=== PATIENT | male | born 1965 | race Hispanic/Latino ===

== ENCOUNTER 2025-10-08 19:38 | Emergency (ER) | payer BC, OTHER ==
[~2025-10-08] VITALS: Ht 172.7 cm; Wt 90.7 kg
--- NOTE | 2025-10-08 20:12 | EKG ---
[facility] Test Date: 2025-10-08 Test Time: 20:09:50 Pat Name: VIJAY FREY Department: ED Room: Gender: Hat [employer] Inspector: [facility] : [id number] Requested By: ANA HUNG Order Number: [id number] Reading MD: Nazario Delacruz Measurements Intervals [place] Rate: 94 P: 54 [place]: 238 QRS: 69 QRSD: 103 T: 34 QT: 377 QTc: 471 Interpretive Statements Sinus rhythm Prolonged [place] interval No previous ECG available for comparison Electronically Signed On 10-10-2025 10:10:49 CLINICAL PHARMACY TECHNICIAN by Nazario Delacruz Please click the below link to view image of tracing.
[2025-10-08] MEDS: THIAMINE HCL 100 MG/ML 2ML VIAL IVP ONE (20:20)
[2025-10-08] MEDS: 0.9%NACL 1000ML 1,000 ML IV ONE (20:20)
[2025-10-08 20:30] LABS: IMMATURE GRANULOCYTE ABSOLUTE 0.03 K/uL (0-1); NUCLEATED RED BLOOD CELLS 0.0 % (0.0-0.19); PLATELET COUNT (AUTO) 203 K/uL (130-400); RED BLOOD CELL COUNT(AUTO) 3.93 MIL/uL (4.50-6.20); RED CELL DISTRIBUTION WIDTH 12.5 % (11.0-15.5); WHITE BLOOD COUNT (AUTO) 10.2 K/uL (4.8-10.8)
[2025-10-08 20:38] LABS: CREATININE 0.7 mg/dL (0.5-1.3); GLOMERULAR FILTR. RATE CALC 104.0 mL/min (>90); GLUCOSE,RANDOM 127.0 mg/dL (70-105); SODIUM SERUM 133.0 mmol/L (136-145); UREA NITROGEN, BLOOD 7.0 mg/dL (7-18)
[2025-10-08 20:46] LABS: ASPARTATE AMINOTRANSFERASE 44.0 U/L (10-37); CREATINE KINASE, TOTAL 195.0 U/L (21-232); TOTAL PROTEIN, SERUM 8.3 g/dL (6.0-8.3)
--- NOTE | 2025-10-08 21:16 | HMCIMG ---
EXAM: CR Face, 2 View. CLINICAL HISTORY: FALL COMPARISON: None provided. FINDINGS: BONES: No displaced facial fracture detected. SINUSES: No obvious air-fluid level or paranasal sinus opacification. ORBITS: No orbital emphysema detected. SOFT TISSUES: Unremarkable. IMPRESSION: Exam limited. 1. No facial fracture detected. 2. Plain film sensitivity for facial fractures is limited. 3. Facial bone CT may be useful if further imaging evaluation is indicated. /[place]
--- NOTE | 2025-10-08 21:18 | HMCIMG ---
EXAM: CT Head Without IV contrast. CLINICAL HISTORY: FALL TECHNIQUE: Axial computed tomography images of the head/brain without intravenous contrast. COMPARISON: None provided. FINDINGS: BRAIN: No evidence of acute hemorrhage. No mass lesion. No CT evidence for acute territorial infarct. No midline shift or extra-axial collections. VENTRICLES: No hydrocephalus. ORBITS: The orbits are unremarkable. SINUSES AND MASTOIDS: Opacification of the paranasal sinuses especially ethmoid air cells, right maxillary antrum BONES: No fracture. SOFT TISSUES: Unremarkable. IMPRESSION: No acute intracranial abnormality. CT facial bones recommended. /[place]
--- NOTE | 2025-10-08 21:50 | ERN ---
ED Note History of Present Illness Stated Complaint: FALL, ETOH Chief Complaint: Mechanical Fall Time Seen by MD: 19:42 Dictation: 60-YEAR-OLD MALE PRESENTS TO ER COMPLAINTS OF NOSEBLEED, AFTER A FALL. PATIENT STATES HE WAS DRINKING ALCOHOL AND THEN GOT DIZZY AND FELL FORWARD HIT HIS FACE. DENIES LOC. PATIENT STATES HE STARTED TO WASH HIS FACE THE BLOOD STARTED GOING TO THE BACK OF HIS THROAT AND THEN HE STARTED THROWING UP THE BLOOD THAT WAS COMING FROM HIS NOSEBLEED AT BEDSIDE AGREES THAT THAT IS WHAT HAPPENED SHE WITNESSED IT. Allergies: Coded Allergies: No Allergy Information Available (Unverified Allergy, Unknown, 02/27/16) Past Medical History Past Medical History: Alcoholism, Diabetes-Type II, Hypertension Surgical History: None Review of System Dictation CONSTITUTIONAL: NEGATIVE FOR FEVER,CHILLS, AND WEIGHT LOSS EYES: NEGATIVE FOR INJURY, PAIN,REDNESS, AND DISCHARGE ENT: FOR NASAL INJURY. POSITIVE NOSEBLEED CARDIOVASCULAR: NEGATIVE FOR CHEST PAIN, PALPITATIONS, AND EDEMA RESPIRATORY: NEGATIVE FOR SHORTNESS OF BREATH, COUGH, WHEEZING, AND PLEURITIC CHEST PAIN ABDOMEN/GI: NEGATIVE FOR ABDOMINAL PAIN, NAUSEA, VOMITING AND DIARRHEA. BACK: NEGATIVE FOR PAIN OR INJURY : NEGATIVE FOR INJURY, BLEEDING AND DISCHARGE MS/EXTREMITY: NEGATIVE FOR INJURY AND DEFORMITY SKIN: NEGATIVE FOR RASH, AND DISCOLORATION NEURO: POSITIVE FOR HEADACHE, POSITIVE CONTUSION TO HEAD PSYCH: NEGATIVE FOR SUICIDE IDEATION, HOMICIDAL IDEATION, AND HALLUCINATIONS ALLERGY/IMMUNOLOGY: NEGATIVE FOR HIVES, RASH, AND ALLERGIES ALL SYSTEMS NEGATIVE, EXCEPT NOTED ABOVE. 13 POINT REVIEW OF SYSTEMS ASSESSED AND ALL NEGATIVE EXCEPT FOR ABOVE. Initial Vital Sign VS Vital Signs Date Time Temp Pulse Resp B/P (MAP) Pulse Ox O2 Delivery O2 Flow Rate FiO2 10/08/25 19:39 98.1 90 20 125/82 99 Room Air 0 Physical Exam Dictation GENERAL: AWAKE, ALERT, NAD. PATIENT IS INTOXICATED HEAD/FACE: FACIAL ABRASIONS TO NOSE BRIDGE EYES: PERRL, EOMI, VISION AT BASELINE ENT: ORAL CAVITY CLEAR, TMS CLEAR, NO SIGNS OF INFECTION NECK: TRACHEA MIDLINE, SUPPLE, NO NUCHAL RIGIDITY CARDIOVASCULAR: RRR, NORMAL NO JVD RESPIRATORY: CTAB, NO RESPIRATORY DISTRESS, NO RALES OR WHEEZES ABDOMEN: SOFT, NON-TENDER, NON-DISTENDED, NORMAL BOWEL SOUNDS, NO GUARDING OR REBOUND. SKIN: WARM, DRY, NORMAL TURGOR, NO RASH MS/EXTREMITY: PULSES EQUAL, NO CYANOSIS, NEUROVASCULAR INTACT, FROM NEURO: COAX4, GCS 15, STRENGTH 5/5, CN 2-12 INTACT, NORMAL CEREBELLAR EXAM, NORMAL GAIT, PSYCH: NORMAL BEHAVIOR, MOOD, AND AFFECT NORMAL Results (Laboratory/Radiology) Laboratory/Radiology Laboratory Tests Test 10/08/25 20:23 White Blood Count 10.2 K/uL (4.8-10.8) Red Blood Count 3.93 MIL/uL (4.50-6.20) L Hemoglobin 12.8 g/dL (14.0-18.0) L Hematocrit 37.2 % (42-54) L Mean Corpuscular Volume 94.7 fL (79-99) Mean Corpuscular Hemoglobin 32.6 pg (27.0-33.0) Mean Corpuscular Hemoglobin Concent 34.4 g/dL (32.0-36.0) Red Cell Distribution Width 12.5 % (11.0-15.5) Platelet Count 203 K/uL (130-400) Mean Platelet Volume 9.4 fL (7.5-10.5) Immature Granulocyte % (Auto) 0.3 % (0-1) Neutrophils (%) (Auto) 44.2 % (40.0-77.0) Lymphocytes (%) (Auto) 33.2 % (21.0-51.0) Monocytes (%) (Auto) 5.9 % (3.0-13.0) Eosinophils (%) (Auto) 15.7 % (0.0-8.0) H Basophils (%) (Auto) 0.7 % (0.0-5.0) Neutrophils # (Auto) 4.5 K/uL (1.8-7.7) Lymphocytes # (Auto) 3.4 K/uL (1.0-4.8) Monocytes # (Auto) 0.6 K/uL (0.1-1.0) Eosinophils # (Auto) 1.61 K/uL (0.00-0.70) H Basophils # (Auto) 0.07 K/uL (0.00-0.20) Absolute Immature Granulocyte (auto 0.03 K/uL (0-1) Nucleated Red Blood Cells 0.0 % (0.0-0.19) White Cell Morphology Comment See comments Sodium Level 133 mmol/L (136-145) L Potassium Level 4.5 mmol/L (3.5-5.1) Chloride Level 99 mmol/L (101-111) L Carbon Dioxide Level 26 mmol/L (21-32) Blood Urea Nitrogen 7 mg/dL (7-18) Creatinine 0.7 mg/dL (0.5-1.3) Glomerular Filtration Rate Calc 104 mL/min (>90) Random Glucose 127 mg/dL (70-105) H Total Calcium 8.1 mg/dL (8.5-10.1) L Total Bilirubin 0.2 mg/dL (0.2-1.0) Aspartate Amino Transf (AST/SGOT) 44 U/L (10-37) H Alanine Aminotransferase (ALT/SGPT) 49 U/L (12-78) Alkaline Phosphatase 116 U/L (50-136) Total Creatine Kinase 195 U/L (21-232) Troponin I High Sensitivity 20 ng/L (4-75) Total Protein 8.3 g/dL (6.0-8.3) Albumin 3.9 g/dL (3.5-5.0) ED Course ED Course Orders Procedure Category Date Status Time Cbc With Differential LAB 10/08/25 Complete 19:58 Troponin I High LAB 10/08/25 Complete Sensitivity 19:58 12 Lead Ekg Tracing- EKG 10/08/25 Complete Technical 19:58 0.9%Nacl 1000ml (Ns PHA 10/08/25 Complete 1000ml) 20:00 Creatine Kinase, Total LAB 10/08/25 Complete 19:58 Ct Head/Brain W/O CT 10/08/25 Resulted Contrast 19:58 Facial Bones Comp RAD 10/08/25 Resulted 3+Vws 19:58 Comprehensive LAB 10/08/25 Complete Metabolic Panel 19:58 Thiamine Hcl (Vitamin PHA 10/08/25 Complete B-1) 20:30 Current Medications Medications (Trade) Dose Ordered Sig/Jessica Route PRN Reason Start Time Stop Time Status Last Admin Dose Admin Sodium Chloride 1,000 ml @ 0 mls/hr ONCE ONCE IV 10/08/25 20:00 10/08/25 20:07 DC 10/08/25 20:20 Thiamine HCl (Vitamin B-1) 100 mg ONCE ONCE IVP 10/08/25 20:30 10/08/25 20:31 DC 10/08/25 20:20 Vital Signs Date Time Temp Pulse Resp B/P (MAP) Pulse Ox O2 Delivery O2 Flow Rate FiO2 10/08/25 19:39 98.1 90 20 125/82 99 Room Air 0 Medical Decision Making MDM MDM: DIFFERENTIAL DIAGNOSIS: FALL, CONTUSION, HEAD INJURY, NOSE CONTUSION, NOSE FRACTURE, ALCOHOL INTOXICATION. ALCOHOL ABUSE RATIONALE: TESTS CONSIDERED AND ORDERED SECONDARY TO SHARED DECISION MAKING INC LUDE: LABS, ECG AND RADIOLOGY PREVIOUS OUTSIDE RECORDS REVIEWED: OLD ER VISITS. RISK OF COMPLICATION AND/OR MORBIDITY OR MORTALITY OF PATIENT MANAGEMENT: NONE MEDICATIONS-PER MEDICATION RECONCILIATION NEED FOR HOSPITALIZATION: PATIENT DOES NOT MEET CRITERIA FOR HOSPITALIZATION. NEED FOR EMERGENCY MAJOR/MINOR SURGERY: NO THERE ARE NO SOCIAL CONCERNS WITH THIS PATIENT. PRESCRIPTION DRUG MANAGEMENT PRESCRIPTIONS WILL INCLUDE SYMPTOMATIC CARE PATIENT'S PRIOR EXTERNAL MEDICAL RECORDS FROM OTHER ER VISITS WERE REVIEWED BY ME INDICATED. PRIOR TESTING AND RESULTS FROM PREVIOUS VISITS WERE REVIEWED. PRIOR TESTS WERE TAKEN INTO ACCOUNT WITH MEDICAL DECISION MAKING AND RESOURCE UTILIZATION, INDEPENDENT HISTORIAN/HISTORIANS WERE USED TO OBTAIN COMPLETE MEDICAL HISTORY. I INDEPENDENTLY INTERPRETED THE TEST THAT WERE PERFORMED, RESULTS WERE REVIEWED BY ME AND CONSIDERED FINDINGS ON RADIOLOGY IF ORDERED. CT HEAD NEGATIVE. FACIAL X-RAY NEGATIVE. PATIENT IS STABLE FOR DISCHARGE WILL BE TAKING HIM HOME. PATIENT ADVISED OF CONSEQUENCES IF HE CONTINUES TO USE ALCOHOL ABUSE DX & DISP Disposition: Discharge Departure Impression: Primary Impression: Alcohol abuse Additional Impressions: Fall, Facial contusion, Head injury Condition: Stable Additional Instructions: FOLLOW-UP WITH YOUR PCP IN 24-72 HOURS AND IN THE EVENT IF SYMPTOMS WORSEN OR AN EMERGENCY OVERNIGHT REPORT TO THE ED IMMEDIATELY Referrals: SELF,REFERRAL (PCP) ANA HUNG Oct 08, 2025 21:50
[2025-10-08 21:59] VITALS: BP 140/88; PULSE 86; RESP 16; TEMP 98; O2SAT 99
== END 2025-10-08 22:01 | disposition home or self-care (01) ==
LOC: EDH 19:38
DX: S00.83XA Contusion of other part of head, initial encounter (principal); R04.0 Epistaxis; E11.9 Type 2 diabetes mellitus without complications; I10 Essential (primary) hypertension; F10.10 Alcohol abuse, uncomplicated; Y90.9 Presence of alcohol in blood, level not specified; W18.09XA Striking against other object with subsequent fall, initial encounter; Y93.89 Activity, other specified; Y92.89 Other specified places as the place of occurrence of the external cause; Y99.8 Other external cause status
CPT/HCPCS: 99284; 96374; 70450; 96361; 82550; 84484; 80053; 85025; 36415; 70150; 93005; J7030; J3411; 99285